=== PATIENT | female | born 1955 | race Caucasian/White ===

== ENCOUNTER → 2018-01-11 | Outpatient (CLI) | payer OTHER ==
[2018-01-11 17:40] LABS: ALKALINE PHOSPHATASE 68 U/L (45-117); ALT/SGPT 28 U/L (12-78); AST/SGOT 19 U/L (15-37); BLOOD UREA NITROGEN 14 mg/dl (7-18); CALCIUM 9.3 mg/dl (8.5-10.1); CARBON DIOXIDE 25 mmol/L (21-32); CHOLESTEROL 227 mg/dl (0-200); CREATININE 0.89 mg/dl (0.60-1.20); GLUCOSE 103 mg/dl (70-99); LDL CHOLESTEROL CALCULATED 128 mg/dl; POTASSIUM 4.1 mmol/L (3.5-5.1); SODIUM 138 mmol/L (136-145); TOTAL PROTEIN 7.3 gm/dl (6.4-8.2)
[2018-01-12 06:32] LABS: HEMOGLOBIN A1C 5.8 % (4.5-5.6)
== END | disposition home or self-care (01) ==
LOC: C.LABBFT 11:41
PROVIDERS: ATTEND Internal Medicine
DX: Z00.00 Encounter for general adult medical examination without abnormal findings (principal); E78.5 Hyperlipidemia, unspecified; R73.01 Impaired fasting glucose; Z11.59 Encounter for screening for other viral diseases